=== PATIENT | female | born 1980 | race Caucasian/White ===

== ENCOUNTER 2017-06-27 15:12 | Emergency (ER) | payer OTHER ==
[~2017-06-27] VITALS: Ht 167.6 cm; Wt 82.2 kg
[~2017-06-27 15:12] MED LIST: ACETAMINOPHEN PO; ALBUTEROL17 G1 IH; ANTIVERT PO; ATIVAN0.5 M1 PO; CELEXA PO; CIPRO PO; CIPRO250 MG PO; EXCEDRIN EXTRA1 TAB PO; FLAGYL PO; FLEXERIL PO; FLEXERIL10 MG PO; HYDROCODON-ACE1 EAC9 PO; IBUPROFEN PO; IBUPROFEN800 MG PO; KEFLEX500 M2 PO; LORTAB 5/500 TA1 TA1 PO; MACROBID100 M1 PO; MEDROL4 MG/DOSE- PO; NO MEDICATIONS; PENICILLIN PO; PERCOCET 5-3251 TAB PO; PHENERGAN PO; PHENERGAN RC; PHENERGAN25 M1 PO; PHENERGAN25 MG PO; PYRIDIUM PO; TYLOX1 CAP 5/50 PO; VICODIN 5/1 TAB 5/50 PO; VICODIN 5/500 T1 TAB PO; ZITHROMAX PO; ZITHROMAX1 G/PKT PO; ZOFRAN ODT4 MG PO
[2017-06-27 15:58] LABS: URINE SOURCE CLEAN CATCH
[2017-06-27 16:01] LABS: URINE APPEARANCE CLEAR; URINE BILIRUBIN NEG (NEG); URINE BLOOD TRACE-INTACT (NEG); URINE COLOR YELLOW; URINE GLUCOSE NEG (NORM); URINE KETONE NEG (NEG); URINE LEUKOCYTE ESTERASE 1+ (NEG); URINE NITRATE NEG (NEG); URINE PH 7.5 (5-8); URINE PROTEIN TRACE (NEG); URINE UROBILINOGEN 0.2 MG/DL (NORM)
[2017-06-27 16:03] LABS: MICRO INDICATED? YES
[2017-06-27 16:28] LABS: CULTURE INDICATED? YES; URINE BACTERIA NEG (NEG); URINE HYALINE CAST 0-2 /[HPF]; URINE MUCUS PRESENT; URINE SQUAMOUS EPITHELIAL CELL MANY /[HPF]; URINE WBC 100-200 /[HPF] (0-5)
== END 2017-06-27 17:43 | disposition home or self-care (01) ==
LOC: SED 15:12
PROVIDERS: Physician Assistant
DX: O23.11 Infections of bladder in pregnancy, first trimester (principal); N30.00 Acute cystitis without hematuria; F43.10 Post-traumatic stress disorder, unspecified; O99.331 Smoking (tobacco) complicating pregnancy, first trimester; F17.210 Nicotine dependence, cigarettes, uncomplicated; Z88.2 Allergy status to sulfonamides; Z79.899 Other long term (current) drug therapy
CPT/HCPCS: 81003; 84703; 87086; 99283